=== PATIENT | female | born 1980 | race Caucasian/White ===

== ENCOUNTER 2021-11-19 12:36 | Emergency (ER) | payer MEDICAID, SELFPAY ==
[~2021-11-19] VITALS: Ht 160 cm; Wt 45.4 kg
[2021-11-19 13:45] VITALS: BP_SYST 116
[2021-11-19] MEDS ORDERED: ALBU8.5H8 INH (19:48)
[2021-11-19] MEDS ORDERED: PRED20TA PO (19:48)
--- NOTE | 2021-11-19 19:54 | NUR ---
Dr. Christian at [facility] to explain results and treatment plans.
[2021-11-19 20:04] VITALS: BP_SYST 116
--- NOTE | 2021-11-19 20:04 | NUR ---
Patient given written and verbal discharge instructions and verbalizes understanding. ER MD discussed with patient the results and treatment provided. Patient in stable condition. ID arm band removed. Rx of ProAir and Prednisone given. Patient educated on pain management and to follow up with PMD. Pain Scale 0/10. Opportunity for questions provided and answered. Medication side effect fact sheet provided.
== END 2021-11-19 20:04 | disposition home or self-care (01) ==
LOC: SED 12:36
DX: U07.1 COVID-19 (principal)
CPT/HCPCS: 36415; 71045; 99284